=== PATIENT | female | born 1960 | race Caucasian/White ===

== ENCOUNTER 2020-05-13 15:23 | Emergency (ER) | payer BC ==
[2020-05-13] MEDS ORDERED: Sodium Chloride 0.9% 1,000 ML IV ONE (15:49)
[2020-05-13] MEDS ORDERED: Ondansetron 4 MG/2 ML SDV IVPUSH ONE (15:49)
--- NOTE | 2020-05-13 16:20 | EDM.PDOC ---
ED HPI GENERAL MEDICAL PROBLEM - General Stated Complaint: CAME IN BY AMBULANCE Time Seen by Provider: 05/13/20 16:00 Source of Information: Reports: Patient History Limitations: Reports: No Limitations - History of Present Illness INITIAL COMMENTS - FREE TEXT/NARRATIVE: This 60 yo female patient reports to the ED via [facility] due to nausea/vomiting, fevers, headaches and body aches. The patient reports she tested positive for COVID last Wednesday (05/06/20) and has had these symptoms since that time. The patient reports she attempted to call her primary care facility to get medications for the nausea, but her primary care facility advised her that she has to be seen first. The patient reports she has not been able to keep anything down. The patient attempted to take Tylenol today, but vomited shortly after taking the medications. 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 Generalized Pain Score (Numeric/FACES): 5 - Related Data Allergies Allergy/AdvReac Type Severity Reaction Status Date / Time caffeine AdvReac Stomach Verified 05/13/20 15:24 Upset Past Medical History Cardiovascular History: Reports: High Cholesterol Psychiatric History: Reports: Depression Immunologic History: Reports: Immunosuppression, Other (See Below) Other Immunologic History: LLP Social & Family History - Tobacco Use Tobacco Use Status *Q: Never Tobacco User Second Hand Smoke Exposure: No - Caffeine Use Caffeine Use: Reports: None - Recreational Drug Use Recreational Drug Use: No ED ROS GENERAL - Review of Systems Review Of Systems: Comprehensive ROS is negative, except as noted in HPI. ED EXAM, GI/ABD - Physical Exam Exam: See Below Exam Limited By: No Limitations General Appearance: Alert, WD/WN, Moderate Distress Eyes: Bilateral: Normal Appearance, EOMI Ears: Normal External Exam, Normal Canal, Hearing Grossly Normal, Normal TMs Nose: Normal Inspection, Normal Mucosa, No Blood Throat/Mouth: Normal Inspection, Normal Lips, Normal Teeth, Normal Gums, Normal Oropharynx, Normal Voice, No Airway Compromise Head: Atraumatic, Normocephalic Neck: Normal Inspection, Supple, Non-Tender, Full Range of Motion Respiratory/Chest: Decreased Breath Sounds Cardiovascular: Normal Peripheral Pulses, Regular Rate, Rhythm, No Edema, No Gallop, No JVD, No Murmur, No Rub GI/Abdominal Exam: Normal Bowel Sounds, No Organomegaly, No Distention, No Abnormal Bruit, No Mass, Pelvis Stable, Tender (generalized ) (Female) Exam: Deferred Rectal (Female) Exam: Deferred Back Exam: Normal Inspection, Full Range of Motion, NT Extremities: Normal Inspection, Normal Range of Motion, Non-Tender, Normal Cap illary Refill, No Pedal Edema Neurological: Alert, Oriented, CN II-XII Intact, Normal Cognition, Normal Gait, Normal Reflexes, No Motor/Sensory Deficits Psychiatric: Normal Affect, Normal Mood Skin Exam: Warm, Dry, Intact, Normal Color, No Rash Lymphatic: No Adenopathy Course - Vital Signs Last Recorded V/S: Last Vital Signs Temp 36.5 C 05/13/20 15:19 Pulse 78 05/13/20 15:19 Resp 20 05/13/20 15:19 BP 220/114 H 05/13/20 15:19 Pulse Ox 96 05/13/20 15:19 - Orders/Labs/Meds Orders: Active Orders 24 hr Category Date Time Status C-REACTIVE PROTEIN [CHEM] Stat Lab 05/13/20 15:29 Received COMPREHENSIVE METABOLIC PN,CMP [CHEM] Stat Lab 05/13/20 15:29 Received D-DIMER QUANTITATIVE [COAG] Stat Lab 05/13/20 15:29 Received Labs: Laboratory Tests 05/13/20 Range/Units 15:29 WBC 3.4 L (5.0-10.0) 10^3/uL RBC 5.24 (4.2-5.4) 10^6/uL Hgb 16.1 H (12.0-16.0) g/dL Hct 48.4 H (37.0-47.0) % MCV 92.4 (80-100) fL MCH 30.7 (27.0-34.0) pg MCHC 33.3 (33.0-35.0) g/dL Plt Count 186 (150-450) 10^3/uL Neut % (Auto) 62.7 (42.2-75.2) % Lymph % (Auto) 24.0 (20.5-50.1) % [place] % (Auto) 12.7 H (2-8) % Eos % (Auto) 0.3 L (1.0-3.0) % Baso % (Auto) 0.3 (0.0-1.0) % Meds: Medications Discontinued Medications Generic Name Dose Route Start Last Admin Trade Name Hawk PRN Reason Stop Dose Admin Sodium Chloride 1,000 mls @ 999 mls/hr 05/13/20 15:49 05/13/20 16:24 Normal Saline IV 05/13/20 16:49 125 mls/hr .BOLUS ONE Infusion Ondansetron HCl 4 mg 05/13/20 15:49 05/13/20 15:57 Zofran IVPUSH 05/13/20 15:50 4 mg ONETIME ONE Administration Promethazine HCl 25 mg 05/13/20 16:22 05/13/20 16:25 Phenergan IM 05/13/20 16:23 25 mg ONETIME ONE Administration Departure - Departure Time of Disposition: 17:25 Disposition: Home, Self-Care 01 Condition: Fair Clinical Impression: COVID-19 Nausea & vomiting Qualifiers: Vomiting type: unspecified Vomiting Intractability: intractable Qualified Code(s): R11.2 - Nausea with vomiting, unspecified - Discharge Information *PRESCRIPTION DRUG MONITORING PROGRAM REVIEWED*: Not Applicable *COPY OF PRESCRIPTION DRUG MONITORING REPORT IN PATIENT HERMES: Not Applicable Instructions: COVID-19: How to Protect Yourself and Others - CDC, Nausea and Vomiting, Adult, [id number] Forms: ED Department Discharge Care Plan Goals: The patient was advised of the examination and lab results during the visit. The patient was given IV fluids, IV Zofran and IM Phenergan while in the ED. The patient reports her nausea/vomiting improved after the Phenergan. The patient was discharged with a script for Phenergan (25 mg) #20 to take 1 by mouth every 6 hours as needed for nausea. If the patient has any additional symptoms or concerns, the patient should either return to the emergency department or visit her primary care facility. Sepsis Event Note (ED) - Evaluation Sepsis Screening Result: No Definite Risk - Focused Exam Vital Signs: Vital Signs Temp Pulse Resp BP Pulse Ox 05/13/20 15:19 36.5 C 78 20 220/114 H 96 - My Orders Last 24 Hours: My Active Orders 05/13/20 15:29 C-REACTIVE PROTEIN [CHEM] Stat COMPREHENSIVE METABOLIC PN,CMP [CHEM] Stat D-DIMER QUANTITATIVE [COAG] Stat - Assessment/Plan Last 24 Hours: My Active Orders 05/13/20 15:29 C-REACTIVE PROTEIN [CHEM] Stat COMPREHENSIVE METABOLIC PN,CMP [CHEM] Stat D-DIMER QUANTITATIVE [COAG] Stat
[2020-05-13] MEDS ORDERED: Promethazine 25 MG/ML SDV IM ONE (16:22)
[2020-05-13 17:24] LABS: ANION GAP 16.1 mEq/L (7-13); CHLORIDE,CL 101 mmol/L (98-107); SODIUM,NA 141 mmol/L (136-145)
== END 2020-05-13 17:39 | disposition home or self-care (01) ==
LOC: DL.ED 15:23
DX: U07.1 COVID-19 (principal); Z91.018 Allergy to other foods
CPT/HCPCS: 36415; 80053; 85025; 85379; 86140; 96372; 96374; 99284; J2405; J2550; J7030